=== PATIENT | female | born 1955 | race Caucasian/White ===

== ENCOUNTER 2016-12-18 14:47 | Emergency (ER) | payer MEDICARE, OTHER ==
[~2016-12-18] VITALS: Ht 165.1 cm; Wt 126.4 kg
[~2016-12-18 14:47] MED LIST: ACET-66 PO; ADV250 IH; ASCO-360 PO; ASPI81 PO; ATOR40TA28 PO; AUD NEB; BUME2TAB18 PO; CALC-724 PO; CETI-101 PO; CYCL10 PO; DIAZ10 PO; DIPH-654 PO; DIPH1TAB PO; DIPH50 PO; DSS100 PO; ERGO500050 PO; ESOM20CA31 PO; ESOM40CA PO; GABA600T PO; HYDR-3707 PO; HYDR25TA84 PO; MAG-55 PO; MOM30 PO; MONT10TA21 PO; PEPTO BISMOL PO; PHENERGAN PO; ROPI1TAB11 PO; TRAVZOS OU; VALS160T2 PO
[2016-12-18] MEDS ORDERED: LACT30L PO (15:18)
[2016-12-18] MEDS ORDERED: LORA2TAB2 PO (15:18)
[2016-12-18] MEDS ORDERED: OLAN10TA3 PO (15:18)
[2016-12-18] MEDS ORDERED: FURO40 PO (15:18)
[2016-12-18] MEDS ORDERED: CARI350 PO (15:18)
[2016-12-18] MEDS ORDERED: PANT40TA25 PO (15:18)
[2016-12-18] MEDS ORDERED: TRAZ-144 PO (15:18)
[2016-12-18] MEDS ORDERED: MOM30 PO (15:18)
[2016-12-18] MEDS ORDERED: FENO48TA15 PO (15:18)
[2016-12-18] MEDS ORDERED: CLON.1 PO (15:18)
[2016-12-18] MEDS ORDERED: BISA5TAB12 PO (15:18)
[2016-12-18] MEDS ORDERED: LORazepam 1 MG TABLET PO ONE (17:30)
[2016-12-18 21:15] VITALS: BP 115/73
== END 2016-12-18 21:16 | disposition home or self-care (01) ==
LOC: EMS 14:49
DX: S01.01XA Laceration without foreign body of scalp, initial encounter (principal); J45.909 Unspecified asthma, uncomplicated; I25.10 Atherosclerotic heart disease of native coronary artery without angina pectoris; J44.9 Chronic obstructive pulmonary disease, unspecified; I11.9 Hypertensive heart disease without heart failure; E78.00 Pure hypercholesterolemia, unspecified; G43.909 Migraine, unspecified, not intractable, without status migrainosus; E66.9 Obesity, unspecified; Z68.42 Body mass index [BMI] 45.0-49.9, adult; Z88.1 Allergy status to other antibiotic agents; Z91.041 Radiographic dye allergy status; Z88.5 Allergy status to narcotic agent; Z91.010 Allergy to peanuts; Z88.0 Allergy status to penicillin; Z91.013 Allergy to seafood; Z88.2 Allergy status to sulfonamides; Z88.8 Allergy status to other drugs, medicaments and biological substances; Z91.018 Allergy to other foods; W19.XXXA Unspecified fall, initial encounter; Y93.89 Activity, other specified; Y92.89 Other specified places as the place of occurrence of the external cause; Y99.8 Other external cause status
CPT/HCPCS: 12001; 70450; 70551; 99284

== ENCOUNTER 2018-06-10 14:55 | Emergency (ER) | payer MEDICARE, OTHER ==
[~2018-06-10] VITALS: Ht 167.6 cm; Wt 159.1 kg
[~2018-06-10 14:55] MED LIST changes: -ADV250 IH; -ASPI81 PO; +BISA5TAB12 PO; +CARI350 PO; +CLON-570 PO; -CYCL10 PO; -DIAZ10 PO; -DIPH-654 PO; -DSS100 PO; -ERGO500050 PO; -ESOM20CA31 PO; +FENO48TA15 PO; +FURO40 PO; +LACT30L PO; +LORA2TAB2 PO; -MAG-55 PO; +OLAN10TA3 PO; +PANT40TA25 PO; -PEPTO BISMOL PO; -PHENERGAN PO; -TRAVZOS OU; +TRAZ-219 PO
[2018-06-10 18:23] LABS: BASOPHILS % (AUTO) 0.9 % (0.0-2.0); HEMATOCRIT 31.1 % (36-46); LYMPHOCYTES # (AUTO) 1.4 K/uL (1.0-4.8); LYMPHOCYTES % (AUTO) 18.6 % (22.0-44.0); MEAN CORPUSCULAR HEMOGLOBIN 26.7 pg (26.0-34.0); MEAN CORPUSCULAR VOLUME 83 fL (80-100); MONOCYTES # (AUTO) 0.5 K/uL (0.1-1.0); MONOCYTES % (AUTO) 6.7 % (2.0-9.0); NEUTROPHILS # (AUTO) 5.3 K/uL (1.8-7.7); NEUTROPHILS % (AUTO) 71.8 % (40.0-70.0); PLATELET COUNT (AUTO) 346 K/uL (150-450); RED BLOOD CELL COUNT(AUTO) 3.74 MIL/uL (4.00-5.20); RED CELL DISTRIBUTION WIDTH 17.3 % (11.5-14.5)
[2018-06-10 18:25] LABS: CALCIUM, TOTAL 9.2 mg/dL (8.8-10.5); CREATININE 1.24 mg/dL (0.60-1.30); POTASSIUM 4.1 mmol/L (3.5-5.1)
[2018-06-10] MEDS ORDERED: HYDROCODONE/ACETAMINOPHEN 5-325 MG TABLET PO ONE (18:30)
[2018-06-10 18:31] LABS: ALBUMIN 3.4 g/dL (3.4-5.0); BILIRUBIN,TOTAL 0.3 mg/dL (0.1-1.0); TOTAL PROTEIN, SERUM 7.5 g/dL (6.4-8.2)
[2018-06-10 19:44] VITALS: BP 111/72
== END 2018-06-10 19:45 | disposition home or self-care (01) ==
LOC: EMS 14:56
DX: R60.0 Localized edema (principal); M79.89 Other specified soft tissue disorders; R06.02 Shortness of breath; F41.9 Anxiety disorder, unspecified; J45.909 Unspecified asthma, uncomplicated; F31.9 Bipolar disorder, unspecified; I25.10 Atherosclerotic heart disease of native coronary artery without angina pectoris; F32.9 Major depressive disorder, single episode, unspecified; I11.9 Hypertensive heart disease without heart failure; G43.909 Migraine, unspecified, not intractable, without status migrainosus; G89.29 Other chronic pain; M19.90 Unspecified osteoarthritis, unspecified site; Z98.51 Tubal ligation status; Z90.710 Acquired absence of both cervix and uterus; Z79.899 Other long term (current) drug therapy; Z88.2 Allergy status to sulfonamides; Z88.8 Allergy status to other drugs, medicaments and biological substances; Z88.1 Allergy status to other antibiotic agents; Z91.041 Radiographic dye allergy status; Z88.5 Allergy status to narcotic agent; Z91.010 Allergy to peanuts; Z88.0 Allergy status to penicillin; Z91.013 Allergy to seafood
CPT/HCPCS: 93971